=== PATIENT | female | born 1965 | race African-American/Black ===

== ENCOUNTER 2022-11-01 13:55 | Emergency (ER) | payer OTHER ==
[2022-11-01 14:00] VITALS: BP 159/58; PULSE 76; RESP 18; TEMP 97.7; BMI 36.5
[2022-11-01] MEDS ORDERED: DEXAMETHASONE SOD PHOSPHATE 10 MG/1 ML VIAL IM ONE (14:33)
[2022-11-01] MEDS ORDERED: diazePAM 5 MG TABLET PO ONE (14:33)
[2022-11-01] MEDS ORDERED: DEXAMETHASONE SOD PHOSPHATE 10 MG/1 ML VIAL ONE (14:36)
[2022-11-01] MEDS ORDERED: diazePAM 5 MG TABLET ONE (14:36)
[2022-11-01] MEDS ORDERED: IBUPROFEN 400 MG TABLET (FP) PO ONE ×2 (15:21→15:23)
[2022-11-01 16:26] LABS: EPI CELLS 8 /uL (0-25.1); HYALINE CASTS 0 /uL (0-3.1); PH,URINE 7.5 (5.0-8.0); URINE APPEARANCE CLOUDY; URINE BACTERIA 19 /uL (0-1359); URINE BILIRUBIN NEGATIVE (NEGATIVE); URINE COLOR YELLOW; URINE GLUCOSE (UA) NEGATIVE (NEGATIVE); URINE KETONE NEGATIVE (NEGATIVE); URINE LEUK ESTERASE 1+ (NEGATIVE); URINE NITRITE NEGATIVE (NEGATIVE); URINE PROTEIN NEGATIVE (NEGATIVE); URINE RBC 11 /uL (0-23.9); URINE UROBILINOGEN 0.2 mg/dL (0.2-1.0); URINE WBC 40 /uL (0-25.8)
== END 2022-11-01 16:42 | disposition home or self-care (01) ==
LOC: JER 13:55
PROC: 3E023GC Introduction of Other Therapeutic Substance into Muscle, Percutaneous Approach (ICD-10-PCS; principal; 2022-11-01)
DX: M54.50 Low back pain, unspecified (principal)
CPT/HCPCS: 81003; 87077; 87086; 99284-25; J1100

== ENCOUNTER 2025-06-12 10:38 | Emergency (ER) | payer OTHER ==
[2025-06-12 10:42] VITALS: BP 137/72; PULSE 72; RESP 20; TEMP 97.9; BMI 27.3
[2025-06-21] MEDS ORDERED: INSULIN ASPART SLIDING SCALE (NOVOLOG) 1 VIAL SQ ONE (08:54)
== END 2025-06-12 12:20 | disposition home or self-care (01) ==
LOC: JERFT 10:38
DX: S62.616A Displaced fracture of proximal phalanx of right little finger, initial encounter for closed fracture (principal); W22.8XXA Striking against or struck by other objects, initial encounter; Y92.000 Kitchen of unspecified non-institutional (private) residence as the place of occurrence of the external cause
CPT/HCPCS: 73130-TC-RT-FY; 99283-25